=== PATIENT | female | born 1950 | race African-American/Black ===

== ENCOUNTER 2021-03-13 16:24 | Emergency (ER) | payer MEDICARE, OTHER ==
[~2021-03-13] VITALS: Ht 162.6 cm; Wt 79.4 kg
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
[2021-03-13] MEDS ORDERED: TDAP [DIPH/PERTUSSIS/TET] 0.5 ML VIAL IM ONE ×2 (16:52→17:00)
[2021-03-13] MEDS ORDERED: MORPHINE SULFATE INJ 4 MG/ML DISP.SYRIN ONE ×3 (16:52→19:14)
[2021-03-13] MEDS ORDERED: MORPHINE SULFATE INJ 2 MG/ML DISP.SYRIN IV ONE ×2 (17:00→19:00)
[2021-03-13] MEDS ORDERED: IV NS 0.9% 1,000 ML BAG IV ONE (17:00)
--- NOTE | 2021-03-13 17:04 | NUR ---
WENT TO CT
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
--- NOTE | 2021-03-13 18:08 | NUR ---
SON IS VICKIE [phone] DAUGHTER IS ANGELINE [phone] DM HTN [facility] 2 MONTHS AGO. CECILIA [phone] COUSIN
[2021-03-13 18:09] LABS: BASOPHILS # (AUTO) 0.1 K/uL (0.0-0.2); BASOPHILS % (AUTO) 0.8 % (0.0-2.0); EOSINOPHILS % (AUTO) 1.7 % (0.0-6.0); HEMATOCRIT 37 % (33-45); HEMOGLOBIN 12.4 g/dL (11.5-14.8); LYMPHOCYTES # (AUTO) 3.2 K/uL (0.8-4.8); LYMPHOCYTES % (AUTO) 21.5 % (20.0-44.0); MEAN CORPUSCULAR HGB CONC 33 g/dl (31.0-36.0); MEAN CORPUSCULAR VOLUME 89 fL (82-100); MONOCYTES # (AUTO) 0.7 K/uL (0.1-1.30); NEUTROPHILS # (AUTO) 10.5 K/uL (1.8-8.9); PLATELET COUNT (AUTO) 276 K/uL (150-450); RED BLOOD CELL COUNT(AUTO) 4.19 MIL/uL (4.0-5.2); WHITE BLOOD COUNT (AUTO) 14.8 K/uL (4.3-11.0)
[2021-03-13 18:25] LABS: CALCIUM, SERUM 8.7 mg/dL (8.5-10.1); POTASSIUM 4.4 mmol/L (3.5-5.1)
[2021-03-13] MEDS ORDERED: ATOR10TA PO (18:34)
[2021-03-13] MEDS ORDERED: GLIM1TAB18 PO (18:34)
[2021-03-13] MEDS ORDERED: ALEN70TA80 PO (18:34)
[2021-03-13] MEDS ORDERED: LISI2.5T2 PO (18:34)
[2021-03-13] MEDS ORDERED: AMLO1CAP6 PO (18:34)
[2021-03-13] MEDS ORDERED: APIX5TAB PO (18:34)
[2021-03-13] MEDS ORDERED: AMIO200T5 PO (18:34)
[2021-03-13] MEDS ORDERED: METF-440 PO (18:34)
--- NOTE | 2021-03-13 18:35 | NUR ---
DR CAMPUZANO AT BEDSIDE
--- NOTE | 2021-03-13 18:39 | NUR ---
MD AT BEDSIDE, AWARE OF PT HEART RATE
--- NOTE | 2021-03-13 18:48 | NUR ---
CALLED [facility] [phone] [place] [address] ALCARAZ SPEAKING WITH DR. CAMPUZANO.
--- NOTE | 2021-03-13 18:59 | NUR ---
PT ACCEPTED TO [facility] ER TRAUMA UNDER DR. ALCARAZ ARRANGING ALS.
[2021-03-13] MEDS ORDERED: DILTIAZEM HCL 50 MG IV IV ONE (19:00)
--- NOTE | 2021-03-13 19:05 | NUR ---
REC'D REPORT FROM DIEGO MERCADO FOR [facility]
--- NOTE | 2021-03-13 19:05 | NUR ---
PT PLACED ON 2L O2 FOR COMFORT
[2021-03-13] MEDS ORDERED: DILTIAZEM HCL 50 MG IV ONE (19:06)
--- NOTE | 2021-03-13 19:07 | NUR ---
CALLED [facility] NO ALS TRANSPORT
--- NOTE | 2021-03-13 19:08 | NUR ---
[facility] FOR ALS ETA 2100 PER [facility]
--- NOTE | 2021-03-13 19:35 | NUR ---
CALLED [facility] TO GIVE INSURANCE INFO.
--- NOTE | 2021-03-13 20:12 | NUR ---
GAVE REPORT TO DIEGO LLOYD FOR [facility] AT [facility]
[2021-03-13 21:05] VITALS: BP 118/98
--- NOTE | 2021-03-13 21:12 | NUR ---
GAVE REPORT TO EMS
--- NOTE | 2021-03-13 21:14 | NUR ---
CALLED BOTH SON & DAUGHTER VICKIE [phone] ANGELINE [phone] INFORMED ABOUT THE TRANSFER TO [facility].
== END 2021-03-13 21:25 | disposition short-term general hospital (02) ==
LOC: ER 16:26
DX: S72.491A Other fracture of lower end of right femur, initial encounter for closed fracture (principal); V47.5XXA Car driver injured in collision with fixed or stationary object in traffic accident, initial encounter; Y92.414 Local residential or business street as the place of occurrence of the external cause; S22.43XA Multiple fractures of ribs, bilateral, initial encounter for closed fracture; S26.90XA Unspecified injury of heart, unspecified with or without hemopericardium, initial encounter; S27.329A Contusion of lung, unspecified, initial encounter; Z20.822 Contact with and (suspected) exposure to COVID-19; I48.91 Unspecified atrial fibrillation; Z79.01 Long term (current) use of anticoagulants; Z79.899 Other long term (current) drug therapy; E11.9 Type 2 diabetes mellitus without complications; Z79.84 Long term (current) use of oral hypoglycemic drugs; M50.321 Other cervical disc degeneration at C4-C5 level
CPT/HCPCS: 36415; 70450; 71045; 71250; 72125; 73564 ×2; 74176; 80048; 85025; 85730; 87081; 87426; 90471; 90715; 93005; 96361; 96374; 96375; 96376; 99291; 99292; J2270 ×3; J3490; J7030; C9803